=== PATIENT | male | born 2000 | race Hispanic/Latino ===

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

== ENCOUNTER 2019-06-03 22:25 | Emergency (ER) | payer OTHER, SELFPAY ==
[2019-06-03] MEDS ORDERED: Ketorolac Tromethamine 30 MG/ML VIAL ONE (23:29)
--- NOTE | 2019-06-04 00:27 | RAD ---
EXAM: Chest one view: HISTORY: Cough and throat pain COMPARISON: None FINDINGS: Heart size: Within normal limits. Lungs: Clear of acute process. No evidence for pneumonia, pleural effusion, acute edema, or pneumothorax, or other significant acute process. IMPRESSION: No significant acute intrathoracic disease.
== END 2019-06-03 23:59 | disposition home or self-care (01) ==
LOC: NAV ERS 22:25
DX: J45.901 Unspecified asthma with (acute) exacerbation (principal); Z79.51 Long term (current) use of inhaled steroids
CPT/HCPCS: 71045; 93005; 94640; 96372; J1885; J7620